=== PATIENT | female | born 1950 | race Caucasian/White ===

== ENCOUNTER 2024-09-27 18:12 | Emergency (ER) | payer MEDICARE ==
[~2024-09-27] VITALS: Ht 165.1 cm; Wt 113.0 kg
[2024-09-27] MEDS: OXYMETAZOLINE HCL 0.05% 15 ML NASAL SPRAY NASAL ONE (18:27)
[2024-09-27] MEDS: TRANEXAMIC ACID 1,000 MG/10 ML VIAL TP ONE (18:28)
[2024-09-27] MEDS: LIDOCAINE 1%/EPI 1:200,000/PF 10 ML VIAL SQ ONE (18:28)
[2024-09-27] MEDS: SODIUM CHLORIDE 0.9% 1,000 ML IV ONE (20:55)
[2024-09-27 20:58] LABS: BASOPHILS % (AUTO) 0.4 % (0.0-2.0); EOSINOPHILS % (AUTO) 0.5 % (1.0-6.0); HEMATOCRIT 38.3 % (36-46); HEMOGLOBIN 12.9 g/dL (12.0-16.0); LYMPHOCYTES # (AUTO) 1.4 K/uL (1.0-4.8); LYMPHOCYTES % (AUTO) 18.9 % (22.0-44.0); MEAN CORPUSCULAR HEMOGLOBIN 29.2 pg (26.0-34.0); MEAN CORPUSCULAR HGB CONC 33.8 G/dL (31.0-37.0); MEAN CORPUSCULAR VOLUME 87 fL (80-100); MONOCYTES # (AUTO) 0.3 K/uL (0.1-1.0); MONOCYTES % (AUTO) 4.5 % (2.0-9.0); NEUTROPHILS # (AUTO) 5.8 K/uL (1.8-7.7); NEUTROPHILS % (AUTO) 75.7 % (40.0-70.0); PLATELET COUNT (AUTO) 190 K/uL (150-450); RED BLOOD CELL COUNT(AUTO) 4.43 MIL/uL (4.00-5.20); RED CELL DISTRIBUTION WIDTH 13.7 % (11.5-14.5); WHITE BLOOD COUNT (AUTO) 7.6 K/uL (4.5-11.0)
[2024-09-27 21:06] LABS: CALCIUM, TOTAL 8.5 mg/dL (8.8-10.5); CREATININE 0.96 mg/dL (0.60-1.30); POTASSIUM 3.7 mmol/L (3.5-5.1)
[2024-09-27 21:08] LABS: PROTHROMBIN TIME 10.3 SEC (9.4-11.6)
[2024-09-27 23:40] VITALS: TEMP 97.8
[2024-09-28 00:48] LABS: HEMATOCRIT 36.3 % (36-46); HEMOGLOBIN 12.1 g/dL (12.0-16.0)
[2024-09-28] MEDS: SODIUM CHLORIDE 0.9% 1,000 ML IV ONE (01:02)
[2024-09-28 01:08] LABS: TROPONIN I-HIGH SENSITIVITY 15 ng/L (<51)
[2024-09-28] MEDS: ACETAMINOPHEN 650 MG/20.3 ML SOLUTION UDCUP PO ONE (03:47)
[2024-09-28] MEDS: METOPROLOL TARTRATE 25 MG TABLET PO ONE (03:47)
[2024-09-28] MEDS: LOSARTAN POTASSIUM 50 MG TABLET PO ONE (03:47)
[2024-09-28 03:58] VITALS: BP 148/87; PULSE 96; RESP 18; O2SAT 96
[2024-09-28] MEDS ORDERED: BACI28.410 TP (04:19)
== END 2024-09-28 04:59 | disposition home or self-care (01) ==
LOC: EMS 18:12
DX: R04.0 Epistaxis (principal); I10 Essential (primary) hypertension
CPT/HCPCS: 99283; 96360; 96361; 80048; 84484; 85014; 85018; 85025; 85610; 36415; 30901; 93005; J3490 ×2